=== PATIENT | female | born 1980 | race African-American/Black ===

== ENCOUNTER 2019-07-29 12:06 | Emergency (ER) | payer OTHER ==
[~2019-07-29] VITALS: Ht 165.1 cm; Wt 73.5 kg
[~2019-07-29 12:06] MED LIST: ALEVE220 M1; AMOXICILLIN 50500 M1 PO; APAP500; AUGMENTIN 875875 MG PO; BUPROPION; BUPROPION PO; DOXYCYCLINE 10100 MG PO; FLAGYL500 MG PO; FLEXERIL PO; HYDROCODON-ACE1 EAC7 PO; IBUPROFEN 400400 M1; IBUPROFEN 600600 M1; IBUPROFEN 600600 M1 PO; IBUPROFEN 800800 MG PO; K-DUR 20 MEQ T20 MEQ PO; KEFLEX500 MG PO; LIDODERM 5%1 PATC1 TRANSDERM; LISINOPRIL20 MG; LORTABELXR PO; NAPROXEN; NO MEDS; NOHOMEMEDICATIONS; NORCO 5-325 TA1 EACH PO; NORFLEX100 MG PO; OMEPRAZOLE20 M2 PO; OMEPRAZOLE20 MG PO; OXYCODONE HCL 55 MG; PENICILLIN V P500 MG PO; PERCOCET 5-3251 EACH PO; PRENATAL VITAM1 EAC5 PO; VALIUM5 MG; VICODIN PO; ZOFRAN ODT4 MG PO
[2019-07-29] MEDS ORDERED: TYLENOL WITH CO1 TA1 PO (13:32)
[2019-07-29 13:45] VITALS: BP 157/101
== END 2019-07-29 13:45 | disposition home or self-care (01) ==
LOC: ER 12:06
DX: S61.012A Laceration without foreign body of left thumb without damage to nail, initial encounter (principal); Z90.49 Acquired absence of other specified parts of digestive tract; Z98.51 Tubal ligation status; W27.5XXA Contact with paper-cutter, initial encounter; Y93.89 Activity, other specified; Y92.69 Other specified industrial and construction area as the place of occurrence of the external cause; Y99.9 Unspecified external cause status